=== PATIENT | female | born 1990 | race Caucasian/White ===

== ENCOUNTER 2016-08-13 08:17 | Emergency (ER) | payer OTHER ==
[2016-08-13 08:27] VITALS: BP 112/81
[2016-08-13] MEDS ORDERED: HYDROcodone/ACETAMIN 5-325 MG* 1 TAB PO ONE (08:53)
[2016-08-13] MEDS ORDERED: Ondansetron ODT TAB* 4 MG PO ONE (08:57)
[2016-08-13] MEDS ORDERED: Ondansetron ODT TAB* 4 MG ONE (08:59)
--- NOTE | 2016-08-13 08:59 | UC ---
Abdominal Pain Female HPI - HPI Summary HPI Summary: SUDDEN ONSET OF LEFT SIDED FLANK/ABDOMINAL PAIN THIS MORNING WITH NAUSEA. NO DYSURIA, FREQUENCY OR URGENCY. NO FEVER. - History of Current Complaint Chief Complaint: UCAbdominalPain Stated Complaint: ABDOMINAL PAIN Time Seen by Provider: 08/13/16 08:35 Hx Obtained From: Patient Hx Last Menstrual Period: 2.5 weeks ago Onset/Duration: Sudden Onset, Lasting Hours, Still Present Timing: Constant Severity Initially: Moderate Severity Currently: Severe Pain Intensity: 9 Pain Scale Used: 0-10 Numeric Radiates: Yes Radiates to: Flank Character: Sharp Aggravating Factor(s): Nothing Alleviating Factor(s): Nothing Associated Signs and Symptoms: Positive: Back Pain Allergies/Adverse Reactions: Allergies Allergy/AdvReac Type Severity Reaction Status Date / Time No Known Allergies Allergy Verified 06/23/14 20:44 PMH/Surg Hx/FS Hx/Imm Hx Previously Healthy: Yes - Surgical History Surgical History: Yes Surgery Procedure, Year, and Place: D&C, Tubal Ligation - Family History Known Family History: Positive: Hypertension - Social History Alcohol Use: Occasionally Substance Use Type: None Smoking Status (MU): Heavy Every Day Tobacco Smoker Type: Cigarettes Amount Used/How Often: 3-4 cigs per day Length of Time of Smoking/Using Tobacco: 10 years Have You Smoked in the Last Year: Yes - Immunization History Most Recent Influenza Vaccination: 2016/2017 Most Recent Tetanus Shot: thinks within 5 years Review of Systems Constitutional: Negative Respiratory: Negative Cardiovascular: Negative Gastrointestinal: Abdominal Pain, Other - NAUSEA Genitourinary: Negative All Other Systems Reviewed And Are Negative: Yes Physical Exam Triage Information Reviewed: Yes Appearance: Well-Nourished, Pain Distress - MODERATE Vital Signs: Initial Vital Signs Temp 97.3 F 08/13/16 08:22 Pulse 106 08/13/16 08:22 Resp 18 08/13/16 08:22 BP 112/81 08/13/16 08:22 Pulse Ox 100 08/13/16 08:22 Vital Signs Reviewed: Yes Eyes: Positive: Conjunctiva Clear ENT: Positive: Hearing grossly normal Neck: Positive: Supple Respiratory Exam: Normal Cardiovascular Exam: Normal Abdomen Description: Positive: Soft, CVA Tenderness (L). Negative: CVA Tenderness (R), Distended, Guarding Musculoskeletal: Positive: No Edema Neurological: Positive: Alert Psychological: Positive: Age Appropriate Behavior Skin: Negative: rashes Diagnostics - Laboratory Diagnostic Studies Completed/Ordered: URINE HCG NEGATIVE. URINE DIP SP. GR. 1.025, 3+LEUKS, 3+BLOOD - Radiology CT ABD/PELVIS W/O CONTRAST Xray Interpretation: Positive (See Comments) - LEFT UVJ STONE 5MM Radiology Interpretation Completed By: Radiologist Abd Pain Female Course/Dx - Differential Dx/Diagnosis Provider Diagnoses: 1. NEPHROLITHIASIS/UTI Discharge - Discharge Plan Condition: Stable Disposition: HOME Prescriptions: Hydrocodone-Acetaminophen [Lorcet 5-325 mg] 1 tab PO QID PRN #20 tab MDD 4 PRN Reason: Pain Ondansetron ODT TAB* [Zofran Odt TAB*] 4 mg PO Q6H PRN #20 tab.odt PRN Reason: Nausea/Vomiting Sulfamethox/Trimethoprim DS* [Bactrim DS 800/160 TAB*] 1 tab PO BID #20 tab Tamsulosin CAP* [Flomax CAP*] 0.4 mg PO DAILY #7 cap Patient Education Materials: Kidney Stones (ED), Urinary Tract Infection in Women (ED), How to Strain Your Urine (ED) Referrals: Jonathan Quezada MD [Medical Doctor] - 5 Days Additional Instructions: YOU HAVE A 5 MM KIDNEY STONE. THIS SHOULD PASS ON ITS OWN. TRY TO CATCH IT SO IT CAN BE ANALYZED FOR ITS COMPOSITION. FOLLOW-UP WITH UROLOGY. GO TO THE ER WITHOUT FAIL IF YOU HAVE WORSENING PAIN, NAUSEA, FEVER OR ANY OTHER CONCERNING SYMPTOMS.
--- NOTE | 2016-08-13 09:55 | RAD ---
CLINICAL HISTORY: Hematuria, flank pain COMPARISON: None TECHNIQUE: Multiple contiguous axial CT scans were obtained of the abdomen and pelvis, without intravenous contrast enhancement. Coronal and sagittal multiplanar reformations are submitted for review. Oral contrast was not administered. FINDINGS: The study is limited by the lack of intravenous contrast. This limits evaluation of the solid organs and vasculature. LUNG BASES: The lung bases are clear. LIVER: The liver is normal in shape, size, contour, and attenuation. BILE DUCTS: There is no intrahepatic or extrahepatic biliary dilatation. GALLBLADDER: The gallbladder is normal, without pericholecystic inflammatory change. PANCREAS: The pancreas is normal, without mass or ductal dilatation. SPLEEN: Normal in size and appearance. UPPER GI TRACT: Evaluation of the gastrointestinal tract is limited by incomplete gastric distention. The upper GI tract is unremarkable. SMALL BOWEL AND MESENTERY: The small bowel is normal in contour, course, and caliber. There is no obstruction or dilatation. COLON: The colon is normal in contour, course, caliber. There is no pericolonic inflammatory change. ADRENALS: Normal bilaterally. KIDNEYS: There is a 0.5 cm calculus of the left UPJ. There is trace pelviectasis. BLADDER: The bladder is incompletely distended but is grossly normal. PELVIC ORGANS: The uterus and adnexa are grossly normal for technique. Surgical clips are noted in the pelvis bilaterally. AORTA: The aorta is normal. IVC: Unremarkable LYMPH NODES: There is no lymphadenopathy by size criteria. ABDOMINAL WALL: There is no evidence for abdominal wall hernia. BONES AND SOFT TISSUES: There are mild diffuse degenerative changes. OTHER: None IMPRESSION: LEFT UPJ STONE WITH TRACE PELVIECTASIS.
== END 2016-08-13 10:33 | disposition home or self-care (01) ==
LOC: UCEAST 08:17
DX: N20.0 Calculus of kidney (principal); N39.0 Urinary tract infection, site not specified; F17.210 Nicotine dependence, cigarettes, uncomplicated; Z32.02 Encounter for pregnancy test, result negative
CPT/HCPCS: 74176; 81002; 81025; 87086; 99212; A9270-GY; G0463